=== PATIENT | female | born 1965 | race Two or more races ===

== ENCOUNTER 2016-10-20 18:11 | Emergency (ER) | payer MEDICAID ==
[~2016-10-20] VITALS: Ht 160 cm; Wt 45.0 kg
[2016-10-20] MEDS ORDERED: SODIUM CHLORIDE 0.9% 1,000 ML IV ONE (20:08)
[2016-10-20 20:40] LABS: BASOPHILS % 1.2 % (0.0-2.0); EOSINOPHILS % 2.1 % (0.0-5.0); HEMATOCRIT. 37.3 % (36.0-48.0); HEMOGLOBIN. 12.4 g/dL (12.0-16.0); LYMPHOCYTES % 63.4 % (20.0-50.0); MEAN CORPUSCULAR VOLUME 81.1 fL (81.0-99.0); MEAN PLATELET VOLUME 7.6 fl (7.4-10.4); MONOCYTES % 8.2 % (2.0-8.0); NEUTROPHILS % 25.1 % (40.0-76.0); PLATELET 317 x1000/uL (130-400); RED CELL DISTRIBUTION WIDTH 13.6 % (11.6-14.6)
[2016-10-20 20:46] LABS: CHLORIDE 110 mEq/L (98-107)
[2016-10-20 20:47] LABS: INR 1.1; PROTHROMBIN TIME 11.4 sec
[2016-10-20 20:51] LABS: CLARITY URINE CLEAR (CLEAR); COLOR URINE YELLOW (YELLOW); GLUCOSE URINE NEGATIVE (NEGATIVE); KETONES URINE NEGATIVE (NEGATIVE); LEUKOCYTE ESTERASE URINE NEGATIVE (NEGATIVE); NITRITE URINE NEGATIVE (NEGATIVE); OCCULT BLOOD URINE NEGATIVE (NEGATIVE); PH URINE 5.5 (4.5-8.0); PROTEIN URINE 1+ (NEGATIVE); SPECIFIC GRAVITY URINE 1.035 (1.005-1.030)
[2016-10-20 20:52] LABS: CARBON DIOXIDE 26 mEq/L (21-32); ETHANOL BLOOD < 10 mg/dL
[2016-10-20 20:59] LABS: HCG SCREEN POSITIVE
[2016-10-20 21:02] LABS: *AMPHETAMINES SCREEN URINE NEGATIVE (NEGATIVE); *BARBITURATES SCREEN URINE NEGATIVE (NEGATIVE); *BENZODIAZEPINES SCREEN URINE NEGATIVE (NEGATIVE); METHADONE URINE SCREEN NEGATIVE (NEGATIVE); OPIATES URINE SCREEN NEGATIVE (NEGATIVE); PHENCYCLIDINE URINE SCREEN NEGATIVE (NEGATIVE)
[2016-10-20 21:08] LABS: *COCAINE SCREEN URINE PRESUMTIVE POSITIVE (NEGATIVE); CANNABINOID URINE SCREEN PRESUMTIVE POSITIVE (NEGATIVE)
[2016-10-21 21:34] VITALS: BP 104/65
== END 2016-10-21 23:58 ==
LOC: ER 18:17
DX: N39.0 Urinary tract infection, site not specified (principal); R45.851 Suicidal ideations
CPT/HCPCS: 36415; 80053; 80305; 81001; 83690; 84702; 84703; 85025; 85610; 96360; 96361; 99285; G0482; J7030